=== PATIENT | male | born 1985 | race Caucasian/White ===

== ENCOUNTER → 2016-10-24 | Outpatient (CLI) | payer OTHER ==
[~2016-10-24] MED LIST: BSP5 PO; FLUV100T12 PO; FLUV50TA3 PO
[2016-10-24 17:05] LABS: CHOLESTEROL/HDL RATIO 6.3
== END | disposition home or self-care (01) ==
LOC: C.LABBFT 14:08
PROVIDERS: ATTEND Psychiatry & Neurology Psychiatry
DX: Z51.81 Encounter for therapeutic drug level monitoring (principal); Z79.899 Other long term (current) drug therapy

== ENCOUNTER → 2017-03-31 | Outpatient (CLI) | payer OTHER ==
[2017-03-31 13:12] LABS: ALT/SGPT 29 U/L (12-78); BLOOD UREA NITROGEN 18 mg/dl (7-18); BUN/CREATININE RATIO 15.9 (10-20); CALCIUM 9.1 mg/dl (8.5-10.1); CARBON DIOXIDE 24 mmol/L (21-32); CHLORIDE 105 mmol/L (98-107); GLUCOSE 90 mg/dl (70-99); SODIUM 139 mmol/L (136-145)
[2017-03-31 13:22] LABS: ALB/GLOB RATIO 1.1 (0.9-2); ALKALINE PHOSPHATASE 59 U/L (45-117); AST/SGOT 22 U/L (15-37)
== END | disposition home or self-care (01) ==
LOC: C.LABBFT 07:42
PROVIDERS: ATTEND Family Medicine
DX: Z00.00 Encounter for general adult medical examination without abnormal findings (principal)

== ENCOUNTER → 2018-03-12 | Day surgery (SDC) | payer OTHER ==
[2018-03-08 15:09] VITALS: Ht 186.7 cm; Wt 104.5 kg
[~2018-03-12] VITALS: Ht 186.7 cm; Wt 104.5 kg
[~2018-03-12] MED LIST changes: -BSP5 PO; +CLON1TAB10 PO; +CLON1TAB4 PO; +ESCI1TAB10 PO; -FLUV100T12 PO; -FLUV50TA3 PO; +IRON PO; +LIDOCAINE HCL 2% 2 ML VIAL (20MG/ML) ONE; +MAGNESIUM PO; +MULT-506 PO; +OMEP-334 PO; +PROPOFOL IV EMULSION 10 MG/ML 20 ML VIAL ONE; +SODIUM CHLORIDE 0.9% 500ML 500 ML IV ONE; +SRQ200 PO; +TOPI100T20 PO; +ZINC PO
--- NOTE | 2018-03-12 11:30 | Endo History and Physical ---
History & Physical Date of Service: Mar 12, 2018. Chief Complaint: Reflux, Diarrhea Referring Physician: Rosie Govea History of Present Illness 33 yo CM who presents for EGD and Colonoscopy secondary to GERD and diarrhea. Past Surgical History Hx Cardiac Surgery: No Hx Internal Defibrillator: No Hx Pacemaker: No Hx Abdominal Surgery: No Hx of Implantable Prosthesis: No Hx Cancer Surgery: No Hx Thoracic Surgery: No Hx Orthopedic: No Hx Urinary Tract Surgery: No Family History Colon CA, Polyp Social History Smoking Status: Former Smoker Hx Substance Use: Yes (KLONOPIN DAILY) Hx Alcohol Use: No Allergies Coded Allergies: Sulfa Drugs (Verified Allergy, Unknown, UNKNOWN, 03/12/18) Current Medications Reported Home Medications Medications Dose Route/Sig Max Daily Dose Days Date Category [Magnesium/Zinc/Iron] 1 Tab PO DAILY 03/08/18 Reported Multivitamin (Multivitamins) Tab 1 Tab PO DAILY 03/08/18 Reported Topamax (Topiramate) 100 Mg Tab 100 Mg PO BID 03/08/18 Reported Seroquel (Quetiapine Fumarate) 200 Mg Tab 1 Tab PO HS 03/08/[address] (Omeprazole) 40 Mg Cap 1 Cap PO QAM 03/08/18 Reported Lexapro (Escitalopram Oxalate) 20 Mg Tab 40 Mg PO QPM 03/08/18 Reported Klonopin (Clonazepam) 1 Mg Tab 0.5 Mg PO QPM PRN 03/08/18 Reported Klonopin (Clonazepam) 1 Mg Tab 1 Mg PO DAILY 03/08/18 Reported Vital Signs Weight (Kilograms): 104.55 Height (Feet): 6 Height (Inches): 1.5 Date Time Temp Pulse Resp B/P (MAP) Pulse Ox O2 Delivery O2 Flow Rate FiO2 03/12/18 11:23 36.6 65 18 140/86 (104) 97 Room Air Physical Exam General Appearance: WD/WN, no apparent distress Respiratory/Chest: Auscultation: breath sounds normal Cardiovascular: Heart Auscultation: RRR Abdomen: Bowel Sounds: normal Inspection & Palpation: soft, non-distended, no tenderness, guarding & rebound Assessment and Plan Assessment: 33 yo CM who presents for EGD and Colonoscopy secondary to GERD and diarrhea. Plan: Proceed with EGD and Colonoscopy.
--- NOTE | 2018-03-12 12:26 | GI REPORT ---
Patient Name: Gio Dhaliwal Procedure Date: 03/12/2018 11:41 AM Date of : 1985 Admit Type: Outpatient Age: 33 Gender: Male Attending MD: Christiano Martin DO Procedure: Upper GI endoscopy Providers: Christiano Martin DO Referring MD: Laura Winslow Indications: Suspected gastro-esophageal reflux disease Medicines: Monitored Anesthesia Care Complications: No immediate complications. Estimated Blood Loss: Estimated blood loss: none. Procedure: Pre-Anesthesia Assessment: - Prior to the procedure, a History and Physical was performed, and patient medications and allergies were reviewed. The patient's tolerance of previous anesthesia was also reviewed. The risks and benefits of the procedure and the sedation options and risks were discussed with the patient. All questions were answered, and informed consent was obtained. Prior Anticoagulants: The patient has taken no previous anticoagulant or antiplatelet agents. ASA Grade Assessment: II - A patient with mild systemic disease. After reviewing the risks and benefits, the patient was deemed in satisfactory condition to undergo the procedure. After obtaining informed consent, the endoscope was passed under direct vision. Throughout the procedure, the patient's blood pressure, pulse, and oxygen saturations were monitored continuously. The scope was introduced through the mouth, and advanced to the second part of duodenum. The upper GI endoscopy was accomplished without difficulty. The patient tolerated the procedure well. Findings: The examined esophagus was normal. A small hiatal hernia was present. Localized mild inflammation characterized by erythema was found in the gastric antrum. Biopsies were taken with a cold forceps for Helicobacter pylori testing. The examined duodenum was normal. Biopsies for histology were taken with a cold forceps for evaluation of celiac disease. Impression: - Normal esophagus. - Small hiatal hernia. - Gastritis. Biopsied. - Normal examined duodenum. Biopsied. Recommendation: - Resume previous diet. - Continue present medications. - Await pathology results. - Return to primary care physician as previously scheduled. Christiano Martin DO 03/12/2018 12:25:44 PM This report has been signed electronically. Note Initiated On: 03/12/2018 11:41 AM Number of Addenda: 0 I attest to the content of the Intraoperative Record and orders documented therein, exceptions below {[id number]}
--- NOTE | 2018-03-12 12:28 | GI REPORT ---
Patient Name: Gio Dhaliwal Procedure Date: 03/12/2018 11:40 AM Date of : 1985 Admit Type: Outpatient Age: 33 Gender: Male Attending MD: Christiano Martin DO Procedure: Colonoscopy Providers: Christiano Martin DO Referring MD: Laura Winslow Indications: Chronic diarrhea Medicines: Monitored Anesthesia Care Complications: No immediate complications. Estimated Blood Loss: Estimated blood loss: none. Procedure: Pre-Anesthesia Assessment: - Prior to the procedure, a History and Physical was performed, and patient medications and allergies were reviewed. The patient's tolerance of previous anesthesia was also reviewed. The risks and benefits of the procedure and the sedation options and risks were discussed with the patient. All questions were answered, and informed consent was obtained. Prior Anticoagulants: The patient has taken no previous anticoagulant or antiplatelet agents. ASA Grade Assessment: II - A patient with mild systemic disease. After reviewing the risks and benefits, the patient was deemed in satisfactory condition to undergo the procedure. After I obtained informed consent, the scope was passed under direct vision. Throughout the procedure, the patient's blood pressure, pulse, and oxygen saturations were monitored continuously. The scope was introduced through the anus and advanced to the terminal ileum. The colonoscopy was performed without difficulty. The patient tolerated the procedure well. The quality of the bowel preparation was good. The terminal ileum, ileocecal valve, appendiceal orifice, and rectum were photographed. Findings: The perianal and digital rectal examinations were normal. A 3 mm polyp was found in the rectum. The polyp was sessile. The polyp was removed with a cold snare. Resection and retrieval were complete. Several random biopsies were obtained with cold forceps for histology in the entire colon. Impression: - One 3 mm polyp in the rectum, removed with a cold snare. Resected and retrieved. - Several random biopsies were obtained in the entire colon. Recommendation: - Resume previous diet. - Continue present medications. - Repeat colonoscopy for surveillance based on pathology results. - Return to primary care physician as previously scheduled. Christiano Martin DO 03/12/2018 12:28:07 PM This report has been signed electronically. Note Initiated On: 03/12/2018 11:40 AM Number of Addenda: 0 I attest to the content of the Intraoperative Record and orders documented therein, exceptions below {[id number]}
--- NOTE | 2018-03-12 12:32 | Discharge Instructions ---
Endoscopy Patient Instructions Date / Procedure(s) Performed Mar 12, 2018. Colonoscopy, EGD Allergy Information Coded Allergies: Sulfa Drugs (Verified Allergy, Unknown, UNKNOWN, 03/12/18) Discharge Date / Findings Mar 12, 2018. EGD: Duodenal biopsies, Hiatal hernia, Gastritis with biopsies Colonoscopy: Random colon biopsies, Stool studies collected, Rectal polyp Medication Instructions Stopped Medication(s): Patient stated yes, but couldn't remember and just stopped everything. OK to resume all medications today as prescribed Reported Home Medications Medications Dose Route/Sig Max Daily Dose Days Date Category [Magnesium/Zinc/Iron] 1 Tab PO DAILY 03/08/18 Reported Multivitamin (Multivitamins) Tab 1 Tab PO DAILY 03/08/18 Reported Topamax (Topiramate) 100 Mg Tab 100 Mg PO BID 03/08/18 Reported Seroquel (Quetiapine Fumarate) 200 Mg Tab 1 Tab PO HS 03/08/[address] (Omeprazole) 40 Mg Cap 1 Cap PO QAM 03/08/18 Reported Lexapro (Escitalopram Oxalate) 20 Mg Tab 40 Mg PO QPM 03/08/18 Reported Klonopin (Clonazepam) 1 Mg Tab 0.5 Mg PO QPM PRN 03/08/18 Reported Klonopin (Clonazepam) 1 Mg Tab 1 Mg PO DAILY 03/08/18 Reported Provider Instructions Activity Restrictions - No exercising or heavy lifting for 24 hours. - Do not drink alcohol the day of the procedure. - Do not drive a car or operate machinery until the day after the procedure. - Do not make any important decisions or sign important papers in 24 hours after the procedure. Following Day: - Return to full activity which may include returning to work/school. Diet Start your diet with liquids and light foods (jello, soup, juice, toast). Then eat your usual diet if not nauseated. Treatment For Common After Affects For mild abdominal pain, bloating, or excessive gas: - Rest - Eat lightly - Lie on right side Follow-Up Information Follow-up with Rosie Govea as scheduled Anesthesia Information What You Should Know You have had a procedure that required some medicine to reduce anxiety and discomfort. This treatment is called moderate sedation. After receiving the treatment, you may be sleepy, but you will be able to breathe on your own. The effects of the treatment may last for several hours. Follow these instructions along with Activity/Diet recommendations noted above: * Do NOT do anything where dizziness or clumsiness would be dangerous. * Rest quietly at home today, then you can be up and about tomorrow. * Have a responsible person stay with you the rest of today. * You may have had an I.V. today. If so, you may take the dressing off later today. Recommendations Call your doctor if: * Trouble breathing * Continuous vomiting for more than 24 hours * Temperature above 101 degrees * Severe abdominal pain or bloating * Pain not relieved by pain medicine ordered * There is increased drainage or redness from any incision * A large amount of rectal bleeding greater than 2-3 tablespoons. (If you had a polyp/s removed or have hemorrhoids, a small amount of blood - from the rectum is to be expected.) * You have any unanswered questions or concerns. IN THE EVENT OF A SERIOUS EMERGENCY, GO TO THE NEAREST EMERGENCY ROOM Your discharge instructions were prepared by provider Christiano Martin. Patient Instructions Signature Page Gio Dhaliwal Patient (or Guardian) Signature/Date: I have read and understand the instructions given to me by my caregivers. Caregiver/RN/Doctor Signature/Date: The above-named patient and/or guardian has received patient instructions on this date. + Original Patient Signature Page (only) stays with chart. Please make copy for patient.
[2018-03-12 12:49] VITALS: BP 107/75; PULSE 59; O2SAT 100
--- NOTE | 2018-03-12 12:50 | Anesthesiology Progress Note ---
Anesthesia Post Op Note Date & Time Mar 12, 2018 at 12:50 Vital Signs Pain Intensity: 0 Vital Signs Past 12 Hours Date Time Temp Pulse Resp B/P (MAP) Pulse Ox O2 Delivery O2 Flow Rate FiO2 03/12/18 12:34 63 18 123/73 (90) 99 Room Air 03/12/18 12:19 36.2 69 18 109/66 (80) 98 Room Air 03/12/18 11:23 36.6 65 18 140/86 (104) 97 Room Air Notes Mental Status: alert / awake / arousable, participated in evaluation Pt Amnestic to Procedure: Yes Nausea / Vomiting: adequately controlled Pain: adequately controlled Airway Patency, RR, SpO2: stable & adequate BP & HR: stable & adequate Hydration State: stable & adequate Anesthetic Complications: no major complications apparent
== END | disposition home or self-care (01) ==
LOC: C.GI 10:48
PROVIDERS: ATTEND Internal Medicine
DX: K52.9 Noninfective gastroenteritis and colitis, unspecified (principal); K62.1 Rectal polyp; K44.9 Diaphragmatic hernia without obstruction or gangrene; K29.70 Gastritis, unspecified, without bleeding; F32.9 Major depressive disorder, single episode, unspecified; F31.9 Bipolar disorder, unspecified; F41.9 Anxiety disorder, unspecified; G47.33 Obstructive sleep apnea (adult) (pediatric); Z88.2 Allergy status to sulfonamides; Z80.0 Family history of malignant neoplasm of digestive organs; Z87.891 Personal history of nicotine dependence; Z79.899 Other long term (current) drug therapy